=== PATIENT | female | born 1930 | race Caucasian/White ===

== ENCOUNTER 2016-07-21 16:11 | Observation (INO) | payer MEDICARE, BC ==
--- NOTE | 2016-07-21 16:58 | ERNOTE ---
GI Bleeding/Rectal Pain ER Presenting Symptoms: rectal bleeding Time Seen by Provider: 07/21/16 16:42 Source: patient Exam Limitations: no limitations Immunizations: IMMUNIZATION HX History of Influenza Vaccine No Hx Pneumococcal Vaccination No Allergies/Adverse Reactions: Allergies Sulfa (Sulfonamide Antibiotics) Allergy (Unknown, Verified 07/21/16 16:20) Home Medications: HOME MEDICATIONS Calcium Carbonate/Vitamin D3 [Calcium + Vitamin D Tablet] 1 each PO DAILY [Last Taken 02/26/15] Warfarin Sodium 3 mg PO SUMOWETHFRSA 04/25/12 [Last Taken 02/26/15 08:00] Levothyroxine Sodium [Tirosint] 25 mcg PO DAILY 05/03/13 [Last Taken 02/26/15] Metoprolol Succinate [Toprol Xl] 100 mg PO DAILY 03/12/14 [Last Taken 02/26/15] Warfarin Sodium [Coumadin] 4.5 mg PO TU 03/12/14 [Last Taken 02/20/15] Zolpidem Tartrate [Ambien] 10 mg PO HS PRN 01/23/16 [Last Taken Unknown] Narrative: The patient started to have bloody stools early this morning, the first was mixed with soft stool, since then it has been mainly straight blood, one was jello like, about 10 stools. Patient denies any nausea,vomiting or abdominal pain. She is on coumadin for atrial fibrillation, never had a colonoscopy Date (Duration): 07/21/16 Time (Timing): 03:30 Nausea/Vomiting: Present: none Abdominal Pain: Present: none Rectal Bleeding: Present: without stool, blood mixed with stool Associated Symptoms: Reports: maroon stools - first stool Prior Treament: Denies: recently seen, similar symptoms before Review of Systems - Review of Systems Constitutional: Present: recent illness - URI symptoms a couple of weeks ago have resolved. Absent: fever, chills ENT: Absent: nose congestion, sore throat Respiratory: Absent: shortness of breath, cough Cardiology: Absent: chest pain Gastrointestinal/Abdominal: Present: See HPI Genitourinary: Present: no symptoms reported. Absent: frequency, dysuria Neurological: Absent: See HPI, weakness, numbness - Patient's Past Medical History Patient History - Medical: Hypothyroidism Patient History - Cardiac/Respiratory: Atrial Fibrillation, Hypertension, Hyperlipidemia Patient History - Cancer: No Hx of Cancer Patient History - Surgical Procedures: Appendectomy, Back Surgery, Cholecystectomy, Hysterectomy Patient History - Other: None - Social History Living Situations: home Psych History: No pertinent hx Drug Use: none - Immunizations Hx Pneumococcal Vaccination: No History of Influenza Vaccine: No Physical Exam - Physical Exam General Appearance: Present: wd/wn, alert, no apparent distress, anxious Respiratory: Present: no respiratory distress, lungs clear, decreased breath sounds Cardiovascular/Chest: Present: regular rate, rhythm, no murmur Gastrointestinal/Abdominal: Present: normal bowel sounds, nontender, nondistended, soft Rectal Exam: Present: nontender, normal rectal tone, other - daniel blood on finger Extremity Exam: Present: no edema Neurological Exam: Present: alert, oriented, normal mood/affect Skin Exam: Present: normal color, warm/dry ED Progress - Results and Orders Patient's Lab Results:: I have reviewed the patient's lab results. - Vital Signs Patient's Vital Signs:: I have reviewed the patient's vital signs. Vital Signs: Vital Signs 07/21/16 16:17 Temperature 35.0 C L Pulse Rate 95 Respiratory 12 Rate Blood Pressure 158/98 O2 Sat by Pulse 98 Oximetry - X-Ray X-Ray #1 X-Ray: abdomen - no acute findings, no free air Interpretation: Reviewed by me - Progress/Reassessment Chief Complaint: GI Bleed Progress Note-Subjective: 07/21/16 17:05 on exam with anoscope: no obvious lesion or tears, small amount of blood pooling 07/21/16 17:[address] Degroot, okay to admit, use GI bleed protocol, give vitamin K 07/21/16 18:00 Patient has BM in toilet with daniel blood and clots 07/21/16 18:11 explained results to patient,comfortable, no pain, stable vitals Departure Clinical Impression: Lower GI hemorrhage - Departure Disposition: [facility] Condition: Good
--- OUTSIDE RECORDS SUMMARY | 2016-07-21 16:59 | XMS REPORT | Continuity of Care Document ---
:1930 Author Organization [facility] ([facility]) Address [address] [place] [address] Phone [phone] Care Team Providers Name Role Phone Lul Lopes Primary Care Provider [phone] Source Comments This disclosure is being made pursuant to the Care Everywhere program, applicable federal and state laws, and may not contain all informaitonavailable regarding this patient.[facility] ([facility]) Active Allergies and Adverse Reactions Allergen Noted Date Severity Reactions Comments Sulfa (Sulfonamide Antibiotics) 08/28/2011 OTHER Lip swelling Current Medications Prescription Sig. Disp. Refills Start Date End Date Status metoPROLol 100 mg XL Take 100 mg by Active tablet mouth daily. levothyroxine (TIROSINT) take 1 capsule by 03/07/2014 Active 25 mcg capsule oral route every day losartan-hydrochlorothiazi take 1 tablet by 03/07/2014 Active de 50-12.5 mg per tablet oral route every day zolpiDEM (AMBIEN) 5 mg take 2 tablet by 03/07/2014 Active tablet oral route every day at bedtime nitrofurantoin (MACROBID) 02/26/2015 Active 100 mg capsule POTASSIUM CHLORIDE 10 mEq 03/01/2015 Active XR tablet JANTOVEN 3 mg tab tablet 03/01/2015 Active Active Problems Problem Noted Date Atrial fibrillation 08/29/2011 HTN (hypertension) 08/29/2011 Vaginal burning 08/29/2011 Social History Tobacco Use Types Packs/Day Years Used Date Never Smoker Smokeless Tobacco: Never Used Alcohol Use Drinks/Week oz/Week Comments No Last Filed Vital Signs Vital Sign Reading Time Taken Blood Pressure 102/70 03/06/2015 9:45 AM CDT Pulse 74 03/06/2015 9:45 AM CDT Temperature 36.8 C (98.2 F) 10/29/2011 3:28 PM CDT Respiratory Rate 16 10/29/2011 3:28 PM CDT Height 1.651 m (5' 5") 03/06/2015 9:45 AM CDT Weight 58.06 kg (128 lb) 03/06/2015 9:45 AM CDT Body Mass Index 21.3 03/06/2015 9:45 AM CDT Oxygen Saturation 98% 10/29/2011 3:28 PM CDT Plan of Care Health Maintenance Due Date Last Done Comments Hepatitis B Vaccine (1 of 3 - Primary Series) 1930 Tdap Vaccine 1941 Lipid Disorder Screening 02/15/1948 Td Vaccine 02/15/1948 Zoster Vaccine 1990 Pneumococcal Vaccine (1 of 2 - PCV13) 1995 Influenza Vaccine: Seasonal (#1) 12/31/2015 Results from Last 3 Months Not on file
[2016-07-21 17:07] LABS: Hematocrit 38.7 % (37.0-47.0); Hemoglobin 13.3 gm/dL (12.5-16.0); Mean Cell Volume 94.2 fl (78-100); Mean Corpuscular Hemoglobin 32.4 pg (27-31); Mean Corpuscular Hgb Conc 34.4 g/dl (32-36); Mean Platelet Volume 10.7 fl (6.0-9.5); Neutrophil # 4.6 K/mm3 (1.3-6.0); Neutrophil % 80.2 % (42-75.0); Platelet Count 192 K/mm3 (150-450); Red Blood Count 4.11 M/mm3 (4.2-5.4); Red Cell Distribution Width 14.2 % (11.5-14.0); White Blood Count 5.7 K/mm3 (4.0-10.5)
[2016-07-21 17:19] LABS: Prothrombin Time (Patient) 26.7 Seconds (9.4-11.4)
[2016-07-21 17:20] LABS: Albumin * 4.1 gm/dl (3.4-5.0); Anion Gap 15.2 mmol/L (6.8-13.8); BUN/Creatinine Ratio 18.7 (9.0-21.6); Ca. Corrected For Albumin 8.7 mg/dL (8.4-10.2); Calcium * 9.1 mg/dL (7.9-10.9); Carbon Dioxide 26.3 mmol/L (24-32.6); Potassium 3.5 mmol/L (3.4-4.6); Total Protein 7.1 gm/dL (6.2-8.2)
[2016-07-21 17:22] LABS: INR 2.57 INR (0.90-1.10); Partial Thrombolplastin Time 30.8 Seconds (24-32)
--- OUTSIDE RECORDS SUMMARY | 2016-07-21 18:04 | XMS REPORT | Continuity of Care Document ---
:1930 Author Organization [facility] ([facility]) Address [address] [place] [address] Phone [phone] Care Team Providers Name Role Phone Lul Lopes Primary Care Provider [phone] Source Comments This disclosure is being made pursuant to the Care Everywhere program, applicable federal and state laws, and may not contain all informaitonavailable regarding this patient.[facility] ([facility]) Active Allergies and Adverse Reactions Allergen Noted [...]
[2016-07-21 18:15] LABS: Urine Bilirubin Negative (NEGATIVE); Urine Blood 50 /ul (NEGATIVE); Urine Ketone Negative (NEGATIVE); Urine Nitrite Negative (NEGATIVE); Urine Protein 15 mg/dL (NEGATIVE); Urine Urobilinogen Normal (NORMAL); Urine pH 7.5 pH (5.0-7.0)
[2016-07-21] MEDS ORDERED: PHYTONADIONE (VIT K1) 10 MG/ML AMPUL SC ONE (18:15)
[2016-07-21] MEDS ORDERED: PHYTONADIONE (VIT K1) 10 MG/ML AMPUL ONE (18:19)
[2016-07-21] MEDS ORDERED: ZOLPIDEM TARTRATE 10 MG TABLET PO PRN (18:21)
[2016-07-21 18:32] LABS: Urine Appearance Slightly Cloudy; Urine Bacteria TRACE; Urine Color Yellow; Urine RBC 0-5 /hpf (0-5); Urine WBC None Seen /hpf (0-5)
[2016-07-21] MEDS: NORMAL SALINE 1,000 ML IV PRN (18:45)
--- NOTE | 2016-07-21 20:42 | HP ---
Chief Complaint - Chief Complaint Date of Service: 07/21/16 Time of Service: 20:42 Chief Complaint: Rectal bleeding History of Present Illness: 86 years old female adm to the hospital with reports of copious bright red blood coming from rectum with bowel movement. PMH significant for A-fib (on Coumadin last INR 2.3), hemorrhoids, hypothyroidism, neuropathy and chronic back pain, depression, osteoporosis, insomnia and hyperlipidemia. Pt stated bleeding from rectum began this morning, approximately every hour before adm she would have bowel movement with blood. Last bowel movement was in ER and bright red blood was noted. pt denies dizziness, fatigue, palpitation, shortness of breath. pt stated PCP had stopped her synthroid due to stomach discomfort x1 day ago. In ER vitamin K+ given, INR 2.5, stool + occult blood. X- Ray ABD: moderate fecal retention without evidence of obstruction. Plan of care discussed with pt , she verbalized understanding and agrees. - Patient's Past Medical History Patient History - Medical: Cataracts, Depression, Hypothyroidism, Osteoporosis, UTI'S Patient History - Cardiac/Respiratory: Atrial Fibrillation - on coumadin, Hypertension, Hyperlipidemia, Other - insomnia Patient History - Cancer: No Hx of Cancer Patient History - Surgical Procedures: Appendectomy, Back Surgery, Cholecystectomy, Hysterectomy Patient History - Other: None - Social History Living Situations: spouse Abuse History: No History of abuse Psych History: No pertinent hx Smoking Status: Never smoker Have you smoked in the past 12 months: No Do you dip or chew tobacco: No Drug Use: none - Immunizations Hx Pneumococcal Vaccination: No History of Influenza Vaccine: No Review Of Systems (GEN) - Review of Systems Generalized/Overall Review: Present: Weakness EENTM: Present: No Symptoms Reported Respiratory: Present: No Symptoms Reported Cardiac: Present: No Symptoms Reported Abdominal: Present: Nausea, Diarrhea, Bright blood from rectum Genitourinary: Present: No Symptoms Reported Musculoskeletal: Present: No Symptoms Reported Neurological: Present: No Symptoms Reported Skin: Present: No Symptoms Reported Endocrine: Present: No Symptoms Reported Immunizations: IMMUNIZATION HX History of Influenza Vaccine No Hx Pneumococcal Vaccination No Allergies/Adverse Reactions: Allergies Allergy/AdvReac Type Severity Reaction Status Date / Time Sulfa (Sulfonamide Allergy Unknown Verified 07/21/16 16:20 Antibiotics) Home Medications: HOME MEDICATIONS Calcium Carbonate/Vitamin D3 [Calcium + Vitamin D Tablet] 1 each PO DAILY [Last Taken 02/26/15] Warfarin Sodium 3 mg PO DAILY 04/25/12 [Last Taken 02/26/15 08:00] Metoprolol Succinate [Toprol Xl] 100 mg PO DAILY 03/12/14 [Last Taken 02/26/15] Zolpidem Tartrate [Ambien] 10 mg PO HS PRN 01/23/16 [Last Taken Unknown] Exam - Exam Vital Signs: Vital Signs - Last Taken Temp 36.9 C 07/21/16 19:27 Pulse 79 07/21/16 20:25 Resp 16 07/21/16 19:27 BP 175/93 07/21/16 19:27 Pulse Ox 96 07/21/16 19:27 Constitutional: Present: Alert, Oriented x3, Cooperative, Well developed, No distress, Elderly ENT Exam: Present: moist mucous membranes Eye Exam: bilateral eye: PERRL Neck: Present: full range of motion Back Exam: Present: normal inspection, no CVA tenderness Breasts: Present: Exam deferred Respiratory: Present: chest non-tender, lungs clear, normal breath sounds, no respiratory distress Cardiovascular/Chest: Present: normal peripheral pulses, no chest tenderness, no edema, no gallop, no JVD, irregularly irregular Peripheral Pulses: dorsalis-pedis (R): 2+, dorsalis-pedis (L): 2+ Abdomen: Present: Normal bowel sounds, soft, nontender, nondistended, no rebound tenderness /Rectal: Present: Exam deferred Extremity: Present: normal range of motion, non-tender, normal inspection, no pedal edema, no calf tenderness Skin Exam: Present: normal color, warm/dry, no cyanosis Neurologic: Present: oriented x 3 Appearance: Present: appropriate appearance Eye contact: Present: cooperative Thoughts: Present: normal thought pattern Diagnostic Studies: Abnormal Lab Results 07/21/16 07/21/16 Range/Units 18:01 18:01 Urine Protein 15 H (NEGATIVE) mg/dL Urine Blood 50 H (NEGATIVE) /ul Prot Sulfosalicylic Acd 2+ H (0) mg/dL Stool Occult Blood Positive H Laboratory Results WBC 5.7 K/mm3 (4.0-10.5) 07/21/16 17:00 RBC 4.11 M/mm3 (4.2-5.4) L 07/21/16 17:00 Hgb 13.3 gm/dL (12.5-16.0) 07/21/16 17:00 Hct 38.7 % (37.0-47.0) 07/21/16 17:00 MCV 94.2 fl (78-100) 07/21/16 17:00 MCH 32.4 pg (27-31) H 07/21/16 17:00 MCHC 34.4 g/dl (32-36) 07/21/16 17:00 RDW 14.2 % (11.5-14.0) H 07/21/16 17:00 Plt Count 192 K/mm3 (150-450) 07/21/16 17:00 MPV 10.7 fl (6.0-9.5) H 07/21/16 17:00 Immature Gran % (Auto) 0.20 % (0.001-0.429) 07/21/16 17:00 Immature Gran # (Auto) 0.01 K/mm3 (0.000-0.0310) 07/21/16 17:00 Neutrophils % 80.2 % (42-75.0) H 07/21/16 17:00 Lymphocytes % 12.0 % (20-51) L 07/21/16 17:00 Monocytes % 6.5 % (0.0-9) 07/21/16 17:00 Eosinophils % 0.4 % (0.0-3.0) 07/21/16 17:00 Basophils % 0.7 % (0.0-1.0) 07/21/16 17:00 Nucleated RBC % 0.0 k/mm3 (0-1) 07/21/16 17:00 Neutrophils # 4.6 K/mm3 (1.3-6.0) 07/21/16 17:00 Lymphocytes # 0.7 k/mm3 (1.5-3.5) L 07/21/16 17:00 Monocytes # 0.4 k/mm3 (0.0-1.0) 07/21/16 17:00 Eosinophils # 0.0 k/mm3 (0.0-0.7) 07/21/16 17:00 Absolute Basophils 0.0 k/mm3 (0.0-0.1) 07/21/16 17:00 PT 26.7 Seconds (9.4-11.4) H 07/21/16 17:00 INR (Anticoag Therapy) 2.57 INR (0.90-1.10) H 07/21/16 17:00 PTT (Motley) 30.8 Seconds (24-32) 07/21/16 17:00 Sodium 144 mmol/L (132-142) H 07/21/16 17:00 Plasma Sodium 145 mmol/L (130-142) H 07/21/16 17:00 Potassium 3.5 mmol/L (3.4-4.6) 07/21/16 17:00 Chloride 106 mmol/L (97-106) 07/21/16 17:00 Carbon Dioxide 26.3 mmol/L (24-32.6) 07/21/16 17:00 Anion Gap 15.2 mmol/L (6.8-13.8) H 07/21/16 17:00 BUN 23 mg/dL (3-23) 07/21/16 17:00 Creatinine 1.23 mg/dL (0.4-1.4) 07/21/16 17:00 Est GFR (Non-Af Amer) 44 mL/min (60-130) L 07/21/16 17:00 BUN/Creatinine Ratio 18.7 (9.0-21.6) 07/21/16 17:00 Random Glucose 140 mg/dL (70-110) H 07/21/16 17:00 Calcium 9.1 mg/dL (7.9-10.9) 07/21/16 17:00 Calcium Adj for Albumin 8.7 mg/dL (8.4-10.2) 07/21/16 17:00 Total Bilirubin 1.0 mg/dL (0.0-1.1) 07/21/16 17:00 AST 22 U/L (0-48) 07/21/16 17:00 ALT 29 U/L (19-67) 07/21/16 17:00 Alkaline Phosphatase 76 U/L (50-170) 07/21/16 17:00 Total Protein 7.1 gm/dL (6.2-8.2) 07/21/16 17:00 Albumin 4.1 gm/dl (3.4-5.0) 07/21/16 17:00 Urine Color Yellow 07/21/16 18:01 Urine Appearance Slightly cloudy 07/21/16 18:01 Urine pH 7.5 pH (5.0-7.0) 07/21/16 18:01 Ur Specific Rohwer 1.020 SP.GR. (1.005-1.010) 07/21/16 18:01 Urine Protein 15 mg/dL (NEGATIVE) H 07/21/16 18:01 Urine Glucose (UA) Negative mg/dL (NEGATIVE) 07/21/16 18:01 Urine Ketones Negative mg/dL (NEGATIVE) 07/21/16 18:01 Urine Blood 50 /ul (NEGATIVE) H 07/21/16 18:01 Urine Nitrate Negative (NEGATIVE) 07/21/16 18:01 Urine Bilirubin Negative mg/dl (NEGATIVE) 07/21/16 18:01 Prot Sulfosalicylic Acd 2+ mg/dL (0) H 07/21/16 18:01 Urine Urobilinogen Normal EU/dl (NORMAL) 07/21/16 18:01 Ur Leukocyte Esterase Negative /ul (NEGATIVE) 07/21/16 18:01 Urine RBC 0-5 /hpf (0-5) 07/21/16 18:01 Urine WBC None seen /hpf (0-5) 07/21/16 18:01 Ur Epithelial Cells None seen /hpf (0-5) 07/21/16 18:01 Urine Bacteria Trace (NONE) 07/21/16 18:01 Urine Culture Comments No culture indicated 07/21/16 18:01 Stool Occult Blood Positive H 07/21/16 18:01 Blood Type A Positive 07/21/16 17:00 Antibody Screen Negative 07/21/16 17:00 X-Ray Abdomen: Moderate fecal retention without evidence of obstruction. Assessment/Plan - Narrative Narrative: Acute Lower GI bleeding- possible due to Coumadin use and irritation of hemorrhoids observed in ER and noted on + occult blood testing On adm Hgb 13.3, continue to monitor H/H IVF and encourage clear liquid diet. Vitamin K 10mg x1 was given in ER, INR 2.5 Hypothyroidism- pt synthroid is on hold by PCP. stable Fecal Retention Seen on X-ray abdomen A-fib Hold Coumadin while active bleeding from rectum INR 2.5 Telemetry monitoring Hypertension on adm BP 175/93 Monitor vital signs If daily dose medication was missed give dose tonight. Insomnia-stable continue with home dose of Ambien Code status: DNR VTE ppx: SCD/ TEDS. GI ppx: protonix Anticipate 0-2 days adm Time 45 minutes Pervious charts reviewed - Assessment/Plan (1) Afib Problem: Chronic (2) Lower GI hemorrhage Problem: Acute (3) Hypothyroidism Problem: Chronic (4) Fecal retention Problem: Acute
[2016-07-21 23:05] LABS: Hematocrit 33.4 % (37.0-47.0); Hemoglobin 11.5 gm/dL (12.5-16.0)
[2016-07-22] MEDS: NORMAL SALINE 1,000 ML IV PRN ×2 (02:36→09:35)
[2016-07-22 05:42] LABS: Hematocrit 33.8 % (37.0-47.0); Hemoglobin 11.4 gm/dL (12.5-16.0)
[2016-07-22] MEDS ORDERED: LEVOTHYROXINE SODIUM 25 MCG TABLET PO SCH (07:00)
[2016-07-22] MEDS ORDERED: FAMOTIDINE 20 MG TABLET PO SCH (09:00)
[2016-07-22] MEDS ORDERED: METOPROLOL SUCCINATE 100 MG TABLET.SA PO SCH (09:00)
[2016-07-22 10:21] VITALS: BP 176/78
[2016-07-22 11:03] LABS: Hematocrit 33.4 % (37.0-47.0); Hemoglobin 11.3 gm/dL (12.5-16.0)
--- NOTE | 2016-07-22 12:26 | DS ---
(1) Lower GI hemorrhage Diagnosis(s): Jenn is an 86 yo female that was admitted to observation for acute GI bleed on coumadin. Blood was reportedly bright red blood per rectum. Coumadin was held. She had serial hemoglobins monitored which were unchanged. She had no further bloody stools. Vitals were normal and with no evidence of further bleeding, no drop in hemoglobin, and normal vitals she was discharged to home. Problem: Acute Procedures Performed: none Discharge Disposition: Home self care Disposition: Home self-care Condition: Good Discharge Activity: Activity as tolerated Discharge Diet: Low salt Referrals: Lul Lopes DO [Primary Care Provider] - One Week Problem Oriented Discharge Instructions to Patient/Family: Gastrointestinal Bleeding, [id number] Complete Home Medications List: Complete Home Medication List: Calcium Carbonate/Vitamin D3 [Calcium 600-Vit D3 200 Tablet] 1 each PO DAILY 25/05 Warfarin Sodium 3 mg PO DAILY 04/25/12 Metoprolol Succinate [Toprol Xl] 100 mg PO DAILY 03/12/14 Zolpidem Tartrate [Ambien] 10 mg PO HS PRN 01/23/16
== END 2016-07-22 14:00 | disposition home or self-care (01) ==
LOC: ER 16:11 → INTOOBSV 18:00 → MS 18:00
PROVIDERS: ADMIT Allergy & Immunology; ATTEND Family Medicine
DX: K62.5 Hemorrhage of anus and rectum (principal); I48.2 Chronic atrial fibrillation; Z79.01 Long term (current) use of anticoagulants; E03.9 Hypothyroidism, unspecified; G62.9 Polyneuropathy, unspecified; M54.89 Other dorsalgia; K59.00 Constipation, unspecified; I10 Essential (primary) hypertension; G47.00 Insomnia, unspecified
CPT/HCPCS: 36415; 74020; 80053; 81001; 82272; 85014; 85018; 85025; 85610; 85730; 86850; 86900; 96372; 99283; G0378